=== PATIENT | female | born 1995 | race American Indian/Alaskan Native ===

== ENCOUNTER 2020-12-21 22:37 | Outpatient (CLI) | payer BC, OTHER ==
[2020-12-21] MEDS ORDERED: LACTATED RINGERS 1,000 ML IV ONE (23:30)
[2020-12-22 00:11] VITALS: BP 112/59
[2020-12-22] MEDS ORDERED: TERBUTALINE 1 MG/1 ML INJ ONE (00:28)
[2020-12-22] MEDS ORDERED: TERBUTALINE 1 MG/1 ML INJ SUB-Q ONE ×2 (00:29→01:05)
[2020-12-22 00:55] LABS: Bacteria,Urine 1+ /HPF (Negative)
[2020-12-22 01:04] LABS: Bilirubin,Urine NEG (Negative); Blood,Urine NEG (Negative); Color,Urine Yellow (Yellow); Mucus,Urine FEW /HPF; Protein,Urine <15 mg/dL mg/dL (Negative)
== END 2020-12-22 01:55 | disposition home or self-care (01) ==
LOC: TRG 22:37 → APU 22:40 → TRG 12-22 01:55
PROVIDERS: ATTEND Obstetrics & Gynecology
DX: O62.9 Abnormality of forces of labor, unspecified (principal); Z3A.30 30 weeks gestation of pregnancy
CPT/HCPCS: 59025; 81001; 87086; 96360; 96372; J3105; J7120

== ENCOUNTER 2021-02-14 20:56 | Outpatient (CLI) | payer BC, OTHER ==
[2021-02-14 21:30] VITALS: BP 116/70
== END 2021-02-14 22:50 | disposition home or self-care (01) ==
LOC: TRG 20:56 → APU 20:58 → TRG 22:50
PROVIDERS: ATTEND Obstetrics & Gynecology
DX: Z34.93 Encounter for supervision of normal pregnancy, unspecified, third trimester (principal); Z3A.38 38 weeks gestation of pregnancy
CPT/HCPCS: 36415; 59025; 84112

== ENCOUNTER 2021-02-22 16:55 | Inpatient (IN) | payer BC, OTHER ==
--- NOTE | 2021-02-22 19:00 | History and Physical Report ---
History of Present Illness Date of examination: 02/22/21 Chief complaint: contractions History of present illness: 25yo G1 at 38w3d presents with contractions increasing in intensity and frequency. She denies leakage of fluid or vaginal bleeding. No additional complaints. PNC per [facility]. Past History Past Medical History: no pertinent history, migraines Past Surgical History: no surgical history OPERATIONS MANAGER/COORDINATOR History: herpes Family/Genetic History: none Social history: no significant social history - Obstetrical History Expected Date of Delivery: 03/05/21 Actual Gestation: 38 Week(s) 3 Day(s) : 1 Medications and Allergies Allergies Allergy/AdvReac Type Severity Reaction Status Date / Time No Known Allergies Allergy Unverified 12/21/20 23:04 Home Medications Medication Instructions Recorded Confirmed Last Taken Type Plus Tablet 1 tab PO QDAY 12/21/20 12/21/20 12/21/20 10:00 History Review of Systems Genitourinary: contractions - Vital Signs Vital signs: Vital Signs Pulse Pulse Ox 86 98 02/22/21 17:55 02/22/21 17:55 Temp Pulse Resp BP Pulse Ox 98.4 F 88 16 122/79 100 02/22/21 18:51 02/22/21 18:51 02/22/21 18:51 02/22/21 18:51 02/22/21 18:51 - Physical Exam Breasts: Positive: deferred Cardiovascular: Regular rate Lungs: Positive: Clear to auscultation Abdomen: Positive: normal appearance, soft Genitourinary (Female): Positive: normal external genitalia Cervix: Negative: lesion Uterus: Positive: other (gravid) Extremities: Positive: normal - Obstetrical FHR: category 1 Uterine Contraction Monitor Mode: External Uterine Contraction Pattern: Regular Uterine Contraction Intensity: Moderate Results All other labs normal. Assessment and Plan AOL Anticipate vaginal delivery - Patient Problems (1) Normal labor Current Visit: Yes Status: Acute Plan to address problem: AOL -pitocin per protocol PNC per [facility]. B+/Eileen/RPRNR/HIV-HepB neg/HSV+/Glucola neg/GBS neg (2) Genital herpes affecting Current Visit: Yes Status: Acute Plan to address problem: -assymptomatic for prodromal symptoms -reports compliance with valacyclovir
[2021-02-22] MEDS ORDERED: fentaNYL 100 MCG/2 ML INJ IV PRN (20:17)
[2021-02-22] MEDS ORDERED: NALOXONE 0.4 MG/1 ML INJ IV PRN (20:17)
[2021-02-22] MEDS ORDERED: BUTORPHANOL 2 MG/1 ML INJ IV PRN (20:17)
[2021-02-22] MEDS ORDERED: MINERAL OIL 30 ML ORAL LIQD PO PRN (20:17)
[2021-02-22] MEDS ORDERED: TERBUTALINE 1 MG/1 ML INJ SUB-Q PRN (20:17)
[2021-02-22] MEDS ORDERED: OXYTOCIN 10 UNIT/1 ML INJ IM PRN (20:17)
[2021-02-22] MEDS ORDERED: METHYLERGONOVINE MALEATE 0.2 MG/ML VIAL IM PRN (20:17)
[2021-02-22] MEDS ORDERED: ONDANSETRON 4 MG/2 ML INJ IV PRN (20:17)
[2021-02-22] MEDS ORDERED: ePHEDrine SULFATE 50 MG/1 ML INJ IV PRN (20:17)
[2021-02-22] MEDS ORDERED: ACETAMINOPHEN 325 MG TAB PO PRN (20:17)
[2021-02-22 20:55] LABS: Hematocrit 37.5 % (30.3-42.9); Hemoglobin 13.1 gm/dl (10.1-14.3); Mean Corpuscular HGB Conc 35 % (30-34); Mean Corpuscular Volume 98 fl (79-97); Platelet Count 277 K/mm3 (140-440); Red Blood Count 3.85 M/mm3 (3.65-5.03); Red Cell Distribution Width 14.1 % (13.2-15.2)
[2021-02-22] MEDS: LACTATED RINGERS 1,000 ML IV SCH (20:57)
[2021-02-22] MEDS ORDERED: OXYTOCIN DRIP 30 UNITS/500 ML BAG IV SCH ×2 (21:00)
[2021-02-22] MEDS ORDERED: LIDOCAINE (2%) 20 MG/1 ML VIAL 20 ML MDV INFILTRATI ONE (21:17)
[2021-02-23] MEDS: LACTATED RINGERS 1,000 ML IV SCH ×2 (00:26→08:01)
[2021-02-23] MEDS ORDERED: NALOXONE 2 MG/2 ML INJ IV PRN (02:27)
[2021-02-23] MEDS ORDERED: ePHEDrine SULFATE 50 MG/1 ML INJ IV PRN (02:27)
--- NOTE | 2021-02-23 02:28 | Anesthesia Consultation ---
Anesthesia Consult and Med Hx Date of service: 02/23/21 - Airway Anesthetic Teeth Evaluation: Good ROM Head & Neck: Adequate Mental/Hyoid Distance: Adequate Mallampati Class: Class II Intubation Access Assessment: Probably Good - Pulmonary Exam CTA: Yes - Cardiac Exam Cardiac Exam: RRR - Pre-Operative Health Status ASA Pre-Surgery Classification: ASA2 Proposed Anesthetic Plan: Epidural - Pulmonary Hx Asthma: No COPD: No Hx Pneumonia: No - Cardiovascular System Hx Hypertension: No - Central Nervous System Hx Seizures: No Hx Psychiatric Problems: No - Endocrine Hx Renal Disease: No Hx End Stage Renal Disease: No Hx Hypothyroidism: No Hx Hyperthyroidism: No - Hematic Hx Anemia: No Hx Sickle Cell Disease: No - Other Systems Hx Alcohol Use: No
--- NOTE | 2021-02-23 02:47 | Progress Note ---
Labor Epidural - Labor Epidural Start Time: 02:30 Stop Time: 02:38 Performed by:: CELSO LUNA Procedure: Patient is requesting epidural for labor pain. H&P, and labs reviewed. Procedure explained, questions answered, consent obtained. Patient in sitting position with blood pressure cuff and pulse ox on and working. Timeout performed immediately before start of procedure. Sterile chlorahexadine 0.5% prep/drape. 3 mL 1% lidocaine skin wheal at L[3]-L[4]. 18-gauge [place] epidural needle advanced to [id number] with saline at [7] cm. 27-gauge spinal needle advanced until clear, free-flowing CSF. Intrathecal dexmedetomidine [5] mcg administered and needle removed. Epidural catheter advanced to [12] cm, negative aspiration for blood and csf, negative test dose 3 ml 1.5% lidocaine with epinephrine. Sterile steri-strips and tegaderm applied, followed by tape reinforcement. Patient tolerated procedure well.
[2021-02-23] MEDS: fentaNYL-BUPIV 2 MCG/ML-0.125% 200 MCG/100 ML BAG EPIDURAL SCH ×2 (02:50→10:26)
--- NOTE | 2021-02-23 11:56 | Event Note ---
Date: 02/23/21 Pt feeling more pelvic pressure. Category II tracing with variable decelerations. SVE: 9.5/100/0 with blood show. Closely monitor maternal and fet al status.
--- NOTE | 2021-02-23 12:56 | Procedure Note ---
OB Delivery Note - Delivery Date of Delivery: 02/23/21 Surgeon: KENA FERNANDEZ Estimated blood loss: 200cc - Vaginal Delivery presentation: vertex Delivery position: OA Intrapartum events: PROM->1hr before delivery, mult.variable deceleratio Delivery induction: none Delivery monitor: none Route of delivery: Delivery placenta: spontaneous Episiotomy: none Delivery laceration: none Anesthesia: epidural Delivery comments: Pt rapidly progressed to complete dilation and delivery while on-call provider en route. Upon entry to the room, the was delivered doing skin to skin with his mother. Cord was still attached and placenta in situ. Cord clamped and cut. Placenta delivered spontaneously (3VC, inact). Vagina and perineum explored. No lacerations note. EBL 200 mL. - Infant A at 1 minute: 9 at 5 minutes: 9 Gender: Male (3079g (6lb 13oz) @ 1222pm)
[2021-02-23] MEDS ORDERED: WITCH HAZEL/ GLYCERIN PAD TP PRN (18:38)
[2021-02-23] MEDS ORDERED: PROMETHAZINE 25 MG TAB PO PRN (18:38)
[2021-02-23] MEDS ORDERED: diphenhydrAMINE 25 MG CAP PO PRN (18:38)
[2021-02-23] MEDS ORDERED: BENZOCAINE/MENTHOL 20/0.5% TOP SPRAY 56 GM TP PRN (18:38)
[2021-02-23] MEDS ORDERED: HYDROcodone/ACETAMINOPHEN 5-325 MG TAB PO PRN (18:38)
[2021-02-23] MEDS ORDERED: PROMETHAZINE 25 MG RECT SUPP PR PRN (18:38)
[2021-02-23] MEDS ORDERED: LANOLIN/ZINC/DIMETHICONE (LANSINOH) 7 GM TP PRN ×2 (18:38)
[2021-02-23] MEDS ORDERED: MAGNESIUM HYDROXIDE (MOM) ORAL LIQD UDC PO PRN (18:38)
[2021-02-23] MEDS ORDERED: ONDANSETRON 4 MG/2 ML INJ IV PRN (19:38)
[2021-02-23] MEDS: IBUPROFEN 600 MG TAB PO SCH (23:36)
[2021-02-24 01:01] LABS: Hematocrit 33.6 % (30.3-42.9); Hemoglobin 11.8 gm/dl (10.1-14.3)
[2021-02-24] MEDS: IBUPROFEN 600 MG TAB PO SCH (05:44)
[2021-02-24] MEDS ORDERED: TETANUS,DIPH,PERTUSS(ACELL) VACCINE 0.5 ML SYRINGE IM ONE (06:00)
--- NOTE | 2021-02-24 08:48 | Progress Note ---
Assessment and Plan - Patient Problems (1) Vaginal delivery Current Visit: Yes Status: Acute Plan to address problem: patient doing well Subjective - Subjective Date of service: 02/24/21 Interval history: Patient doing well. No complaints Patient reports: appetite normal, voiding normally, pain well controlled : doing well Objective - Vital Signs Latest vital signs: Vital Signs Temp Pulse Resp BP BP Pulse Ox 02/24/21 05:44 18 02/24/21 00:00 98.6 F 66 18 119/78 02/23/21 23:36 20 02/23/21 19:30 98.6 F 69 16 111/78 02/23/21 14:11 68 126/76 02/23/21 14:08 68 126/71 02/23/21 13:26 81 122/78 02/23/21 13:11 85 127/79 02/23/21 12:56 90 125/77 02/23/21 12:41 112 H 119/72 02/23/21 12:33 90 132/72 02/23/21 12:26 105 H 140/96 02/23/21 12:24 111 H 100 02/23/21 12:19 83 100 02/23/21 12:14 82 100 02/23/21 12:09 97 H 100 02/23/21 12:04 100 H 100 02/23/21 11:59 87 130/98 100 02/23/21 11:54 95 H 100 02/23/21 11:48 74 100 02/23/21 11:43 90 100 02/23/21 11:38 75 100 02/23/21 11:34 84 100 02/23/21 11:29 73 117/74 100 02/23/21 11:23 71 100 02/23/21 11:18 81 100 02/23/21 11:14 73 100 02/23/21 11:09 75 100 02/23/21 11:03 80 100 02/23/21 11:00 75 110/72 02/23/21 10:59 71 100 02/23/21 10:53 76 100 02/23/21 10:49 72 100 02/23/21 10:43 80 100 02/23/21 10:38 84 100 02/23/21 10:33 79 100 02/23/21 10:29 68 100/60 100 02/23/21 10:23 76 100 02/23/21 10:19 78 98 02/23/21 10:16 77 114/67 02/23/21 10:14 80 96 02/23/21 10:08 71 100 02/23/21 10:03 76 100 02/23/21 09:58 67 100 02/23/21 09:53 74 100 02/23/21 09:51 73 90 02/23/21 09:48 69 100 02/23/21 09:45 108 H 90 02/23/21 09:44 68 100 02/23/21 09:38 69 100 02/23/21 09:34 73 100 02/23/21 09:32 108 H 90 02/23/21 09:28 66 100 02/23/21 09:23 94 H 98 02/23/21 09:18 77 99 02/23/21 09:13 67 99 02/23/21 09:08 66 100 02/23/21 09:03 72 99 02/23/21 09:01 86 87 02/23/21 08:59 68 94/53 02/23/21 08:58 68 94 02/23/21 08:53 67 94 02/23/21 08:49 63 94 02/23/21 08:48 63 94 Intake and Output 02/23/21 02/24/21 02/24/21 22:59 06:59 14:59 Intake Total 840 300 Output Total 350 Balance 490 300 Intake: Oral 300 Intake, Free Water 540 300 Output: Urine 350 Void 350 Other: Total, Intake Amount 300 Total, Output Amount 350 # Voids Void 1 1 - Exam Uterus: Present: normal, firm
--- NOTE | 2021-02-24 08:49 | Discharge Summary ---
Providers - Providers Date of Admission: 02/22/21 21:01 Date of discharge: 02/24/21 Attending physician: OLIVIER GUERRERO MD 02/23/21 18:38 Consult to Career Manager [CONS] Routine Reason For Exam: assistance with , SNS Primary care physician: OLIVIER GUERRERO MD Hospitalization Reason for admission: active labor Delivery: Discharge diagnosis: IUP at term delivered Hospital course: Patient admitted in active labor. Had . uncomplicated Condition at discharge: Good Disposition: TO HOME OR SELFCARE - Discharge Diagnoses (1) Vaginal delivery Status: Acute Plan - Discharge Medications Prescriptions: Ibuprofen [Motrin] 800 mg PO Q8HR PRN #30 tablet PRN Reason: Pain , Severe (7-10) HYDROcodone/APAP 5-325 [Hyder 5/325] 1 each PO Q6HR PRN #15 tablet PRN Reason: Pain - Provider Discharge Summary Activity: no sex for 6 weeks, no heavy lifting 4 weeks, no strenuous exercise Diet: routine Instructions: routine Additional instructions: [] Smoking cessation referral if applicable(refer to patient education folder for contact #) [] Refer to [facility] Booklet Call your doctor immediately for: * Fever > 100.5 * Heavy vaginal bleeding ( >1 pad per hour) * Severe persistent headache * Shortness of breath * Reddened, hot, painful area to leg or breast * schedule visit in 4 weeks - Follow up plan
--- NOTE | 2021-02-24 12:51 | Post Anesthesia Evaluation ---
- Post Anesthesia Evaluation Patient Participated: Yes Airway Patent: Yes Stable Respiratory Function: Yes Nausea/Vomiting: No Temp > 96.8F: Yes Pain Manageable: Yes Adequeate Hydration: Yes Anesthesia Complications: No Block Receding Appropriately: Yes Patient on Ventilator: No
[2021-02-24] MEDS ORDERED: MEASLES, MUMPS & RUBELLA 12,500 UNIT/0.5 ML VACCINE SUB-Q ONE (13:01)
[2021-02-24 17:03] VITALS: BP 122/81
== END 2021-02-24 15:45 | disposition home or self-care (01) | DRG 806 ==
LOC: APU 16:55 → TRG 16:55 → APU 16:56 → TRG 21:01 → LD 21:01 → OB 02-23 15:24
PROVIDERS: ADMIT Obstetrics & Gynecology; ATTEND Obstetrics & Gynecology
PROC: 10E0XZZ Delivery of Products of Conception, External Approach (ICD-10-PCS; principal; 2021-02-23)
PROC: 3E0S3BZ Introduction of Anesthetic Agent into Epidural Space, Percutaneous Approach (ICD-10-PCS; 2021-02-23)
PROC: 00HU33Z Insertion of Infusion Device into Spinal Canal, Percutaneous Approach (ICD-10-PCS; 2021-02-23)
PROC: 3E0234Z Introduction of Serum, Toxoid and Vaccine into Muscle, Percutaneous Approach (ICD-10-PCS; 2021-02-24)
PROC: 3E0134Z Introduction of Serum, Toxoid and Vaccine into Subcutaneous Tissue, Percutaneous Approach (ICD-10-PCS; 2021-02-24)
DX: O42.02 Full-term premature rupture of membranes, onset of labor within 24 hours of rupture (principal); O98.32 Other infections with a predominantly sexual mode of transmission complicating childbirth; O99.354 Diseases of the nervous system complicating childbirth; Z37.0 Single live birth; O76 Abnormality in fetal heart rate and rhythm complicating labor and delivery; G43.909 Migraine, unspecified, not intractable, without status migrainosus; Z20.822 Contact with and (suspected) exposure to COVID-19; A60.09 Herpesviral infection of other urogenital tract; Z3A.38 38 weeks gestation of pregnancy
CPT/HCPCS: 36415; 59025; 85014; 85018; 85027; 86850; 86900; 86901; 90471; 90715; 96360; G0378; J2590; J7120; U0003